=== PATIENT | female | born 1965 | race Caucasian/White ===

== ENCOUNTER 2021-01-06 08:41 | Emergency (ER) | payer MEDICARE ==
[~2021-01-06 08:41] MED LIST: ARTHRITIS HOT P TP; ESTRIOL100 GM TOP; ESTROGEL50 GM TD; NORCO 5-325 TA1 EACH PO; PROPRANOLOL HCL10 MG PO; VOLTREN XR 100100 MG PO; Voltaren Gel 1 % TOP; ZOLOFT100 MG PO; [UNRECOGNIZED DRUG - OTHER] PR; [UNRECOGNIZED DRUG - OTHER] TOP
[2021-01-06] MEDS ORDERED: HYDROCODON-ACE1 EAC4 PO (10:51)
== END 2021-01-06 11:20 | disposition home or self-care (01) ==
LOC: ER1 08:41
DX: S52.512A Displaced fracture of left radial styloid process, initial encounter for closed fracture (principal); M06.9 Rheumatoid arthritis, unspecified; Z79.899 Other long term (current) drug therapy; W10.9XXA Fall (on) (from) unspecified stairs and steps, initial encounter; Y92.009 Unspecified place in unspecified non-institutional (private) residence as the place of occurrence of the external cause
CPT/HCPCS: 29125; 73110; 99283

== ENCOUNTER → 2021-01-28 | Outpatient (CLI) | payer MEDICARE ==
[~2021-01-28] MED LIST changes: +HYDROCODON-ACE1 EAC4 PO
== END ==
LOC: KOH-I 13:50
DX: M54.2 Cervicalgia (principal); M54.5 Low back pain; Z79.899 Other long term (current) drug therapy; M47.812 Spondylosis without myelopathy or radiculopathy, cervical region; M47.816 Spondylosis without myelopathy or radiculopathy, lumbar region
CPT/HCPCS: 72040; 72100

== ENCOUNTER 2021-03-26 07:52 | Emergency (ER) | payer MEDICARE | END 2021-03-26 11:45 | disposition home or self-care (01) | LOC: ER1 07:52 | DX: J06.9 Acute upper respiratory infection, unspecified (principal); Z20.822 Contact with and (suspected) exposure to COVID-19 | CPT/HCPCS: 71046; 87081; 87880; 99283; U0002 ==

== ENCOUNTER → 2022-03-28 | Outpatient (CLI) | payer MEDICARE | LOC: KOH-I 14:11 | DX: M54.81 Occipital neuralgia (principal); M47.812 Spondylosis without myelopathy or radiculopathy, cervical region; Z79.899 Other long term (current) drug therapy | CPT/HCPCS: 72052 ==